=== PATIENT | female | born 1985 | race African-American/Black ===

== ENCOUNTER 2018-04-04 16:28 | Emergency (ER) | payer OTHER ==
[~2018-04-04] VITALS: Ht 154.9 cm; Wt 105.9 kg
[2018-04-04] MEDS ORDERED: FOLIC ACID1 MG PO (16:42)
[2018-04-04] MEDS ORDERED: PRENATAL VITAMIN (16:42)
[2018-04-04 17:22] LABS: BASOPHILS 0.3 % (0-2); EOSINOPHILS 2.5 % (0-7); HEMATOCRIT 35.5 % (36.0-48.0); HEMOGLOBIN 12.7 g/dL (12-16); IMMATURE GRANULOCYTES 0.2 % (0-5); LYMPHOCYTES 27.1 % (15-50); MCH 31.8 pg (26.0-34.0); MCHC 35.8 g/dL (31.0-37.0); MCV 88.8 fL (80.0-100.0); MEAN PLATELET VOLUME 8.9 fL (7.4-10.4); MONOCYTES 9.5 % (2-11); NEUTROPHILS 60.4 % (40-80); PLATELET COUNT 305 10x3/uL (130-400); WBC 10.7 10x3/uL (4.8-10.8)
[2018-04-04 17:22] LABS: APPEARANCE CLEAR (CLEAR); BILIRUBIN NEGATIVE (NEGATIVE); COLOR YELLOW (YELLOW); GLUCOSE NEGATIVE (NEGATIVE); KETONE NEGATIVE (NEGATIVE); NITRITE NEGATIVE (NEGATIVE); PROTEIN NEGATIVE (NEGATIVE); UROBILINOGEN NORMAL (NORMAL)
[2018-04-04] MEDS ORDERED: ZOFRAN ODT4 MG/UDTAB PO (20:54)
== END 2018-04-04 21:07 | disposition home or self-care (01) ==
LOC: D.ER 16:28
PROVIDERS: Emergency Medicine
DX: O26.891 Other specified pregnancy related conditions, first trimester (principal); Z3A.01 Less than 8 weeks gestation of pregnancy; R11.0 Nausea; F17.200 Nicotine dependence, unspecified, uncomplicated